=== PATIENT | female | born 1960 | race Caucasian/White ===

== ENCOUNTER 2019-04-03 09:21 | Day surgery (SDC) | payer BC ==
--- NOTE | 2019-04-01 10:39 | EKG ---
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
[2019-04-03] MEDS ORDERED: Ringers Lactate 1,000 ML IV ONE ×2 (09:51→13:49)
[2019-04-03] MEDS: OXYMETAZOLINE HCL 0.05% 15ML NAS ONE ×3 (09:53→11:50)
[2019-04-03] MEDS ORDERED: OXYMETAZOLINE HCL 0.05% 15ML NAS ONE ×3 (09:58→13:33)
[2019-04-03] MEDS ORDERED: LIDOCAINE 1% W/EPI 1:100,000 10 ML VIAL ONE (10:13)
[2019-04-03] MEDS ORDERED: PROPOFOL 200 MG/20 ML VIAL IV ONE (10:22)
[2019-04-03] MEDS ORDERED: dexAMETHasone 10 MG/ML VIAL ONE (10:22)
[2019-04-03] MEDS ORDERED: ROCURONIUM 50 MG/5 ML VIAL IV ONE (10:22)
[2019-04-03] MEDS ORDERED: FENTANYL CITR 250 MCG/5 ML ONE (10:22)
[2019-04-03] MEDS ORDERED: MIDAZOLAM HCL 2 MG/2 ML INJ ONE (10:22)
[2019-04-03] MEDS ORDERED: LIDOCAINE 2% MPF 5 ML VIAL ONE (10:22)
[2019-04-03] MEDS ORDERED: NA CHLORIDE 0.9% 500 ML ONE (10:24)
[2019-04-03] MEDS ORDERED: SCOPOLAMINE HYDROBROMIDE PATCH TD ONE (11:07)
[2019-04-03] MEDS ORDERED: GLYCOPYRROLATE 0.2 MG/ML SYR ONE (12:09)
[2019-04-03] MEDS ORDERED: NEOSTIGMINE 1 MG/ML -10 ML VIAL ONE (12:10)
[2019-04-03] MEDS ORDERED: EPHEDRINE SULF 50 MG/ML VIAL ONE (12:22)
[2019-04-03] MEDS ORDERED: ONDANSETRON 4 MG/2 ML VIAL ONE (13:58)
--- NOTE | 2019-04-03 14:04 | P.BOP ---
Preoperative diagnosis: CRS Postoperative diagnosis: suspect AFS Primary procedure: B Ne with max with tissue removal, total ethmoid and frontal Major Case Detective: NONE,NONE Estimated blood loss: 100ml Specimen: B sinus contents Findings: Polyps, thick eosinophilic mucin in max and frontals Anesthesia: General Complications: None Implants: Propel x 6 Fluids & blood products: crystalloid 900ml Transferred to: Recovery Room Condition: Good
--- NOTE | 2019-04-04 04:41 | OP ---
Surgeon: Ev Locke MD Preoperative Diagnosis: Chronic rhinosinusitis with nasal polyps. Postoperative Diagnosis: Chronic rhinosinusitis with nasal polyps, suspicious for allergic fungal si nusitis. Procedure: Bilateral nasal endoscopy with maxillary antrostomy with removal of sinus contents, bilat eral total ethmoidectomy and frontal sinusotomy. Indication For Procedure: Fany Gibbons is a 58-year-old who presented with clinical and radiographic f indings consistent with or suspicious for allergic fungal sinusitis. After maximal medical therapy, she had persistent symptoms and persistent radiographic findings including opacification of the maxil emilie, ethmoid sinuses, and frontal recess. The risks, benefits, alternatives to the procedure were d iscussed with the patient who agreed to proceed. Description Of Procedure: The patient was brought to the operating room. She was placed under gener al anesthesia via oral endotracheal tube. The head of bed was turned 90 degrees. The nasal hairs we re trimmed and the nasal cavity was packed with Afrin-soaked pledgets. The [employer] headpiece was se cured to the patient's forehead and the post treatment CT scan was loaded to the system. Registratio n was performed using the laser pointer on the lower portion of the face. 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 Therefore, additional reg istration was performed by [id number] matching including the nasion and the bilateral lateral can thi as well as additional surface matching over the patient's eyelid and lateral brow area. Registra tion by [id number] matching was then felt to be much improved. The patient was then draped in e standard fashion for sinus surgery. A 0-degree endoscope was used to perform a nasal endoscopy. T here was significant polyps filling the bilateral middle meatus. The middle turbinate had severe rowan ypoid degeneration. Microdebrider was used to debulk the polyps in the middle meatus and to trim a p ortion of the middle turbinate, which was severely polypoid. The bony portion of the middle turbinat e was not removed. After debulking of the polyps, the uncinate process was visualized and removed wi a 90-degree Blakesley and backbiter. The maxillary sinus was then entered with a curved navigatio n suction, revealing thick eosinophilic mucin consistent with clinical suspicions of allergic fungal sinusitis. The microdebrider and 90-degree Blakesley were used to enlarge the maxillary antrostomy b ilaterally. Multiple polyps were removed from the sinus using a 30 and 70 degree endoscope in conjun ction with the maxillary Heuwieser and large Giraffe forceps. The entire lining of the sinus was sig nificantly polypoid and decision was made to avoid stripping of the entire mucosa. Both maxillary si nuses were forcefully irrigated with multiple 20 mL aliquots of sterile saline until all visible muci n and pus was removed. The antrostomy area was packed with Afrin-soaked pledgets intermittently as n eeded to aid in hemostasis. The 0-degree endoscope was then used to begin the ethmoidectomy. The st raight navigation suction was used to aid in dissection through the ethmoid partitions and significan t polypoid mucosa was removed along with bony fragments. The lamina papyracea and skull base were id entified and a 30-degree scope with curved navigation suction was used to divide bony partitions melissa g the skull base. The frontal sinus and frontal recess were identified and dissection with a large a nd small front to back Giraffe was used to remove bony partitions and edematous mucosa from the front al recess. A long curved suction tip was attached to the 20 cc syringe. This was used to forcefully irrigate the left frontal sinus with resulting thick mucinous globs of debris being removed from the frontal sinus and frontal recess. After multiple aliquots, the sinus was felt to be clear and a sim ilar procedure was performed on the right side. The right frontal recess was carefully dissected usi ng a 70-degree endoscope and a Giraffe forceps to remove the bony partitions. The frontal recess the n appeared to be blocked and was forcefully irrigated with curved suction. Again, a large amount of thick mucinous debris was removed from the frontal recess and sequential irrigation was performed unt il the sinus appeared to be clear. Additional removal of bony partitions along the anterior skull ba se was performed. Afrin-soaked pledgets were packed to the sinus cavities for several minutes to aid in hemostasis. After removal, the sinuses were thoroughly irrigated and suctioned. No further muci nous debris or significant polypoid tissue was noted and decision was made for placement of steroid e luting stents. A propel contour was placed in the bilateral frontal recess under direct endoscopic v isualization. A propel mini was placed completely within the maxillary sinus in order to provide loc al drug delivery and to decrease edema within the maxillary sinus cavity. Finally, a standard propel steroid eluting stent was placed within the ethmoid cavities to provide local drug delivery and to p revent lateralization of the middle turbinates. The nasopharynx was suctioned. After further evalua tion, there was mild oozing within the ethmoid cavities and a piece of Xerogel was cut in half and 1/ 2 was placed in the left, the remaining half was placed in the right ethmoid cavity. The dissolvable nasal dressings were then soaked with saline according to medical technician's instructions. The nasophar ynx was again suctioned. An orogastric tube was passed to the stomach and removed. The patient was then returned to care of anesthesia for awakening extubation in the operating room, which proceeded w ithout difficulty. Complications: None. Disposition: Patient will be discharged home later today. Follow up with Dr. Locke in approximate ly 10 days for postoperative debridement. ANIKET/MIKE Voice ID: [id number] Report ID: [id number]
== END 2019-04-03 16:04 | disposition home or self-care (01) ==
LOC: OR 09:21
PROVIDERS: ATTEND Otolaryngology
PROC: 09TV8ZZ Resection of Left Ethmoid Sinus, Via Natural or Artificial Opening Endoscopic (ICD-10-PCS; 2019-04-03)
PROC: 09TU8ZZ Resection of Right Ethmoid Sinus, Via Natural or Artificial Opening Endoscopic (ICD-10-PCS; 2019-04-03)
PROC: 09BR8ZX Excision of Left Maxillary Sinus, Via Natural or Artificial Opening Endoscopic, Diagnostic (ICD-10-PCS; 2019-04-03)
PROC: 09BQ8ZX Excision of Right Maxillary Sinus, Via Natural or Artificial Opening Endoscopic, Diagnostic (ICD-10-PCS; 2019-04-03)
PROC: 099T8ZZ Drainage of Left Frontal Sinus, Via Natural or Artificial Opening Endoscopic (ICD-10-PCS; 2019-04-03)
PROC: 099S8ZZ Drainage of Right Frontal Sinus, Via Natural or Artificial Opening Endoscopic (ICD-10-PCS; 2019-04-03)
PROC: 8E09XBG Computer Assisted Procedure of Head and Neck Region, With Computerized Tomography (ICD-10-PCS; 2019-04-03)
PROC: 8E09XBZ Computer Assisted Procedure of Head and Neck Region (ICD-10-PCS; principal; 2019-04-03 11:00)
DX: J32.8 Other chronic sinusitis (principal); J33.9 Nasal polyp, unspecified; Z85.828 Personal history of other malignant neoplasm of skin; Z87.891 Personal history of nicotine dependence
CPT/HCPCS: 88305; 88312; 93005; J1100; J2250; J2405; J2704; J2710; J3010

== ENCOUNTER 2019-12-11 09:14 | Emergency (ER) | payer BC ==
--- OUTSIDE RECORDS SUMMARY | 2019-12-11 09:15 | XMS REPORT ---
:1960 [facility] Address [address] [place] [address] Dr. Díaz [address] [place] [address] Care Team Providers Name Role Phone Unavailable Unavailable Unavailable Problems This patient has no known problems. Allergies, Adverse Reactions, Alerts This patient has no known allergies or adverse reactions. Medications This patient has no known medications.
--- OUTSIDE RECORDS SUMMARY | 2019-12-11 09:16 | XMS REPORT | Summary of Care ---
:1960 Author Organization [facility] Address [address] [place] [address] Care Team Providers Name Role Phone Mark AnthonyHarmonyHeatherFei Primary Care Provider Reason for Referral Radiology Services (Routine) Status Reason Specialty Diagnoses / Referred By Referred To Procedures Contact Contact Closed Diagnostic Diagnoses Screening for osteoporosis Miriam Cr Radiology Procedures DEXA AXIAL (HIP AND SPINE) [address] [id number] Reason for Visit Radiology Services (Routine) Status Reason Specialty Diagnoses / Referred By Referred To Procedures Contact Contact Closed Diagnostic Diagnoses Screening for osteoporosis Miriam Cr Radiology Procedures DEXA AXIAL (HIP AND SPINE) [address] [address] Encounter Details Date Type Department Care Team Description 10/12/2019 Hospital Encounter Counts include 234 beds at the [facility] Radiology Arrived [facility] [address] [place] [address] [phone] Allergies Not on Filedocumented as of this encounter (statuses as of 10/13/2019) Medications Not on filedocumented as of this encounter (statuses as of 10/13/2019) Active Problems Not on filedocumented as of this encounter (statuses as of 10/13/2019) Social History Tobacco Use Types Packs/Day Years Used Date Never Assessed Sex Assigned at Date Recorded Not on file Job Start Date Occupation Industry Not on file Not on file Not on file Travel History Travel Start Travel End No recent travel history available. documented as of this encounter Last Filed Vital Signs Not on filedocumented in this encounter Plan of Treatment Health Maintenance Due Date Last Done Comments HEPATITIS C (HCV) SCREEN 1960 DTaP,Tdap,and Td Vaccines (1 - 1969 Tdap) PAP SMEAR 1979 Breast Cancer Screening 1998 (MAMMOGRAM) COLONOSCOPY 2008 Zoster Recombinant Vaccine 2008 (SHINGRIX) (1 of 2) INFLUENZA VACCINE (#1) 2019 PNEUMOCOCCAL 0-64 YEARS COMBINED Aged Out No longer eligible based on SERIES patient's age to complete this topic documented as of this encounter Procedures Procedure Name Priority Date/Time Associated Diagnosis Comments DEXA AXIAL (HIP AND Routine 10/12/2019 1:26 Screening for Results for this SPINE) PM RAIL SWITCH OPERATOR osteoporosis procedure are in the results section. documented in this encounter Results DEXA AXIAL (HIP AND SPINE) (10/12/2019 1:26 PM RAIL SWITCH OPERATOR) Specimen Impressions Performed At PACS/VR/DOSE Normal bone mineral density. Narrative Performed At EXAM: DEXA AXIAL (HIP AND SPINE) PACS/VR/DOSE HISTORY: 59 years Female; osteoporosis screening. COMPARISON: None TECHNIQUE: Bone densitometry of the lumbar spine and right hip was performed on a nextsocial system. WHO-definitions T score normal T >/=- 1 SD around the mean osteopenia -1 > T > -2.5 SD below the mean osteoporosis T >/=-2.5 SD below the mean Fracture risk doubles for each 1.5 SD below the mean. FINDINGS: 1. Lumbar spine L1-L4: T score 0.2. Bone mineral density of 1.218 g/cm^2. 2. Right Hip: T score 0.6. Bone mineral density of 1.080 g/cm^2. Right Neck: T score 0.5. Bone mineral density of 1.112 g/cm^2. Procedure Note [facility], Radiant Results Inft User - 10/12/2019 2:42 PM RAIL SWITCH OPERATOR EXAM: DEXA AXIAL (HIP AND SPINE) HISTORY: 59 years Female; osteoporosis screening. COMPARISON: None TECHNIQUE: Bone densitometry of the lumbar spine and right hip was performed on a nextsocial system. WHO-definitions T score normal T >/=- 1 SD around the mean osteopenia -1 > T > -2.5 SD below the mean osteoporosis T >/=-2.5 SD below the mean Fracture risk doubles for each 1.5 SD below the mean. FINDINGS: 1. Lumbar spine L1-L4: T score 0.2. Bone mineral density of 1.218 g/cm^2. 2. Right Hip: T score 0.6. Bone mineral density of 1.080 g/cm^2. Right Neck: T score 0.5. Bone mineral density of 1.112 g/cm^2. IMPRESSION Normal bone mineral density. Performing Organization Address City/State/Zipcode Phone Number PACS/VR/DOSE documented in this encounter Visit Diagnoses Diagnosis Screening for osteoporosis Special screening for osteoporosis documented in this encounter Insurance Payer Benefit Plan Subscriber ID Effective Dates Phone Address Type / Group [facility] [id number] 2017-Vandana [phone] [address] PPO/ POS [place] t 7 [id number] [place] [address] documented as of this encounter
--- OUTSIDE RECORDS SUMMARY | 2019-12-11 09:16 | XMS REPORT | Summary of Care ---
:1960 Author Organization [facility] Address [address] [place] [address] Care Team Providers Name Role Phone Elvis Hopson Primary Care Provider Encounter Details Date Type Department Care Team Description 10/12/2019 Orders Only [facility] Doctor Unassigned, No [address] [facility] [place] [address] [address] [place] [address] Allergies Not on Filedocumented as of this encounter (statuses as of 10/12/2019) Medications Not on filedocumented as of this encounter (statuses as of 10/12/2019) Active Problems Not on filedocumented as of this encounter (statuses as of 10/12/2019) Social History Tobacco Use Types Packs/Day Years Used Date Never Assessed Sex Assigned at Date Recorded Not on file Job Start Date Occupation Industry Not on file Not on file Not on file Travel History Travel Start Travel End No recent travel history available. documented as of this encounter Last Filed Vital Signs Not on filedocumented in this encounter Plan of Treatment Date Type Specialty Care Team Description 10/12/2019 Appointment Radiology Radiology [address] [place] [address] 10/12/2019 Appointment Radiology Radiology [address] [place] [phone] Health Maintenance Due Date Last Done Comments [...] Procedure Name Priority Date/Time Associated Diagnosis Comments ASSIGNMENT OF BENEFITS Routine 10/12/2019 12:47 PM VASC TECH documented in this encounter Results Not on filedocumented in this encounter Insurance Payer Benefit Plan Subscriber ID Effective Dates Phone Address Type / Group [facility] [id number] 2017-Vandana [phone] [address] PPO/ POS [place] SELECT t [id number] [place] [address] documented as of this encounter
--- OUTSIDE RECORDS SUMMARY | 2019-12-11 09:16 | XMS REPORT | Summary of Care ---
:1960 Author Organization [facility] Address [address] [place] [address] Care Team Providers Name Role Phone HopsonHarmony aceGardeniaFei Primary Care Provider Reason for Referral Radiology Services (Routine) Status Reason Specialty Diagnoses / Referred By Referred To Procedures Contact Contact Closed Diagnostic Diagnoses Status post bilateral breast implants Miriam Cr Radiology Procedures BI SCREENING TOMOSYNTHESIS BILATERAL [address] [facility] [address] [place] [address] Reason for Visit Radiology Services (Routine) Status Reason Specialty Diagnoses / Referred By Referred To Procedures Contact Contact Closed Diagnostic Diagnoses Status post bilateral breast implants Miriam Cr Radiology Procedures BI SCREENING TOMOSYNTHESIS BILATERAL [address] [facility] [address] [place] [address] Encounter Details Date Type Department Care Team Description 10/12/2019 Hospital Encounter [facility] Radiology Arrived [facility] [address] [place] [address] [place], [place] [id number] [place] [phone] Allergies Not on Filedocumented as of this [...] encounter Procedures Procedure Name Priority Date/Time Associated Comments Diagnosis BI SCREENING Routine 10/12/2019 1:16 Status post Results for this TOMOSYNTHESIS 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 documented in this encounter Results BI SCREENING TOMOSYNTHESIS BILATERAL (10/12/2019 1:16 PM ARMHOLE FELLER HANDSTITCHING MACHINE) Specimen Narrative Performed At Examination: PACS BI SCREENING TOMOSYNTHESIS BILATERAL History: Patient is 59 year old and is seen for: Status post bilateral breast implants. Computer-aided detection (CAD) utilized. Comparisons : None available Findings: The breasts have scattered areas of fibroglandular density. There is no evidence of suspicious masses, calcifications, or other abnormal findings. The prepectoral saline implants are normal appearing. Impression: No mammographic evidence of malignancy. Recommendation: Annual mammographic follow-up - Bilateral BI-RADS Category: Both 2 - Benign Performing Organization Address City/State/Zipcode Phone Number PACS documented in this encounter Visit Diagnoses Diagnosis Status post bilateral breast implants Breast replaced by other means documented in this encounter Insurance Payer Benefit Plan Subscriber ID Effective Dates Phone Address Type / Group [employer] [id number] 2017-Vandana [phone] [address] PPO/ POS [place] [employer] t 7 [id number] [place] [address] documented as of this encounter
[2019-12-11] MEDS ORDERED: LIDOCAINE 1% 20 ML MDV ONE (09:48)
[2019-12-11] MEDS ORDERED: TETANUS & DIPHTHERIA TOX,ADULT 0.5 ML VIAL ONE (09:48)
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
[2019-12-11 11:30] VITALS: BP 151/84; O2SAT 98
== END 2019-12-11 11:23 | disposition home or self-care (01) ==
LOC: ER 09:14
PROC: 0JQ00ZZ Repair Scalp Subcutaneous Tissue and Fascia, Open Approach (ICD-10-PCS; principal; 2019-12-11)
DX: S01.01XA Laceration without foreign body of scalp, initial encounter (principal); V18.0XXA Pedal cycle driver injured in noncollision transport accident in nontraffic accident, initial encounter; Z23 Encounter for immunization
CPT/HCPCS: 70450; 90471; 90714; 99284